=== PATIENT | male | born 1980 | race Caucasian/White ===

== ENCOUNTER 2019-02-11 09:09 | Outpatient (REF) | payer BC, SELFPAY ==
[2019-02-11 12:11] LABS: Anion Gap 9.4 mmol/L (3-11); BUN 17 mg/dL (7-18); CO2 25.6 mmol/L (21.0-32.0); CREATININE 1.12 mg/dL (0.70-1.30); Calcium 8.9 mg/dL (8.5-10.1); Chloride 102 mmol/L (98-107); Glucose 94 mg/dL (70-100); Potassium 4.8 mmol/L (3.5-5.1); Sodium 137 mmol/L (136-145)
[2019-02-11 16:11] LABS: Calculated LDL 182 mg/dL; Cholesterol 258 mg/dL (50-200); HDL Cholesterol 44 mg/dL (40-60); Triglyceride 160 mg/dL (30-150)
== END 2019-02-11 09:29 ==
LOC: NCHCN 09:09
PROVIDERS: PCP Specialist/Technologist Athletic Trainer; Visit Provider Specialist/Technologist Athletic Trainer
DX: Z00.00 Encounter for general adult medical examination without abnormal findings (principal); K30 Functional dyspepsia
CPT/HCPCS: 80048; 80061